=== PATIENT | female | born 1965 | race Hispanic/Latino ===

== ENCOUNTER 2017-11-17 10:32 | Outpatient (CLI) | payer OTHER ==
--- NOTE | 2017-11-18 04:59 | XRay Report ---
FINAL REPORT EXAM: XR KNEE 1-2V LT HISTORY: LEFT KNEE FRACTURED COMPARISONS: None. FINDINGS: AP and lateral views left knee Alignment is anatomic, joint spaces are preserved, and subchondral surfaces are smooth. No acute fracture or joint effusion. IMPRESSION: No acute left knee findings.
== END 2017-11-17 10:33 | disposition home or self-care (01) ==
LOC: XRAY 10:32
PROVIDERS: ATTEND Internal Medicine
DX: M25.562 Pain in left knee (principal); M25.831 Other specified joint disorders, right wrist; M25.832 Other specified joint disorders, left wrist; M06.842 Other specified rheumatoid arthritis, left hand; M06.841 Other specified rheumatoid arthritis, right hand; G56.03 Carpal tunnel syndrome, bilateral upper limbs; M19.90 Unspecified osteoarthritis, unspecified site; I11.0 Hypertensive heart disease with heart failure; I50.9 Heart failure, unspecified; K21.9 Gastro-esophageal reflux disease without esophagitis; I25.10 Atherosclerotic heart disease of native coronary artery without angina pectoris; I48.91 Unspecified atrial fibrillation; J45.909 Unspecified asthma, uncomplicated; D64.9 Anemia, unspecified; F17.200 Nicotine dependence, unspecified, uncomplicated

== ENCOUNTER 2017-12-19 17:10 | Emergency (ER) | payer SELFPAY ==
[2017-12-19 17:14] VITALS: BP 152/101
== END 2017-12-19 21:31 | disposition left against medical advice (07) ==
LOC: ED 17:10
DX: I10 Essential (primary) hypertension (principal); Z53.21 Procedure and treatment not carried out due to patient leaving prior to being seen by health care provider

== ENCOUNTER 2018-03-06 09:43 | Emergency (ER) | payer OTHER, MEDICAID ==
[2018-03-06 09:54] VITALS: BP 189/99
[2018-03-06] MEDS ORDERED: TORADOL IM ONE (12:16)
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
== END 2018-03-06 15:27 | disposition home or self-care (01) ==
LOC: ED 09:43
DX: S29.019A Strain of muscle and tendon of unspecified wall of thorax, initial encounter (principal); S39.012A Strain of muscle, fascia and tendon of lower back, initial encounter; V49.40XA Driver injured in collision with unspecified motor vehicles in traffic accident, initial encounter; F17.200 Nicotine dependence, unspecified, uncomplicated; F12.10 Cannabis abuse, uncomplicated; I25.2 Old myocardial infarction; F41.9 Anxiety disorder, unspecified; Z90.49 Acquired absence of other specified parts of digestive tract; M50.33 Other cervical disc degeneration, cervicothoracic region; Y93.89 Activity, other specified; Y92.89 Other specified places as the place of occurrence of the external cause; Y99.8 Other external cause status
CPT/HCPCS: 72040; 72070; 72100; 96372; 99283; J1885

== ENCOUNTER 2018-07-05 17:33 | Emergency (ER) | payer OTHER ==
[2018-07-05 18:45] LABS: Basophils # (Auto) 0.1 K/mm3 (0.0-0.1); Basophils % (Auto) 0.6 % (0.0-1.8); Eosinophils # (Auto) 0.3 K/mm3 (0.0-0.4); Eosinophils % (Auto) 3.6 % (0.0-4.3); Lymphocytes # (Auto) 2.5 K/mm3 (1.2-5.4); Mean Corpuscular HGB Conc 36 % (30-34); Mean Corpuscular Hemoglobin 35 pg (28-32); Mean Corpuscular Volume 98 fl (79-97); Monocytes # (Auto) 0.9 K/mm3 (0.0-0.8); Monocytes % (Auto) 9.5 % (0.0-7.3); Platelet Count 292 K/mm3 (140-440); Red Blood Count 4.85 M/mm3 (3.65-5.03); Red Cell Distribution Width 13.9 % (13.2-15.2)
[2018-07-05 18:52] LABS: Hematocrit 47.6 % (30.3-42.9)
[2018-07-05 19:13] LABS: Alanine Aminotransferase 18 units/L (7-56); Albumin 4.6 g/dL (3.9-5); BUN/Creatinine Ratio 10; Blood Urea Nitrogen 8 mg/dL (7-17); Calcium 9.8 mg/dL (8.4-10.2); Hemolysis Index 5
[2018-07-05 20:28] LABS: Bilirubin,Urine NEG (Negative); Blood,Urine NEG (Negative); Color,Urine Yellow (Yellow); Mucus,Urine FEW /HPF; Protein,Urine <15 mg/dL mg/dL (Negative); Urobilinogen,Urine < 2.0 mg/dL (<2.0)
--- NOTE | 2018-07-06 07:11 | Emergency Department Report ---
ED General Adult HPI - General Chief complaint: Chest Pain Stated complaint: CHEST/STOMACH PAIN Time Seen by Provider: 07/06/18 07:10 Source: patient Mode of arrival: Wheelchair Limitations: No Limitations - History of Present Illness Initial comments: This is a 52-year-old female with several previous workups at this facility for acute coronary syndrome which were negative. This time the patient states that she has been having pain in the epigastric area. The pain is not pleuritic. It occurs more often after eating. It is been present since 12:30 last night. The patient has been taking ibuprofen at the instruction of her primary care physician. She is status post cholecystectomy some years ago. She she does not complain of any dyspnea sweating dizziness syncope or any sort of pleuritic pain. Describes the pain as dull and nonradiating. She states that she occasionally has chest pain which is above this epigastric region along with the upper abdominal pain occasionally has nausea vomiting and minimally painful micturition. She states that she has appointment with her primary care physician tomorrow. -: Gradual, hour(s) Location: abdomen Radiation: non-radiation Quality: aching Consistency: intermittent Improves with: none Worsens with: eating Associated Symptoms: denies other symptoms Treatments Prior to Arrival: none - Related Data Previous Rx's Medication Instructions Recorded Last Taken Type Acetaminophen/Codeine [Tylenol 1 tab PO BID PRN #10 tab 07/25/16 Unknown Rx /Codeine # 3 tab] amLODIPine [Norvasc] 5 mg PO DAILY #30 tab 07/25/16 Unknown Rx Cyclobenzaprine [Flexeril] 10 mg PO BID PRN #20 tablet 03/06/18 Unknown Rx Menthol/Camphor [[place] 1 applicatio TP TID PRN #1 tube 03/06/18 Unknown Rx Ointment] Naproxen [EC-Naprosyn] 500 mg PO BID #30 tablet. 03/06/18 Unknown Rx Lansoprazole [Prevacid] 15 mg PO BID #30 cap 07/06/18 Unknown Rx Nitrofurantoin Monohyd/M-Cryst 100 mg PO BID #10 capsule 07/06/18 Unknown Rx [Macrobid 100 mg Capsule] traMADol [Ultram] 50 mg PO Q6HR PRN #10 tablet 07/06/18 Unknown Rx Allergies Allergy/AdvReac Type Severity Reaction Status Date / Time No Known Allergies Allergy Verified 12/19/17 17:12 ED Review of Systems ROS: Stated complaint: CHEST/STOMACH PAIN Other details as noted in HPI Constitutional: denies: chills, fever Eyes: denies: eye pain, eye discharge, vision change ENT: denies: ear pain, throat pain Respiratory: denies: cough, shortness of breath, wheezing Cardiovascular: denies: chest pain (complaint is abdominal pain and not chest pain), palpitations Endocrine: no symptoms reported Gastrointestinal: abdominal pain, nausea. denies: vomiting (no signs of GI bleeding), diarrhea, melena, hematochezia Genitourinary: denies: urgency, dysuria, discharge Musculoskeletal: denies: back pain, joint swelling, arthralgia Skin: denies: rash, lesions Neurological: denies: headache, weakness, paresthesias Psychiatric: denies: anxiety, depression Hematological/Lymphatic: denies: easy bleeding, easy bruising ED Past Medical Hx - Past Medical History Previous Medical History?: Yes Hx Hypertension: Yes Hx Heart Attack/AMI: Yes (2009) Hx Congestive Heart Failure: No Hx Diabetes: No Hx Kidney Stones: Yes Hx Psychiatric Treatment: Yes (anxiety) Hx Asthma: (bronchitis) Hx COPD: No Hx Dementia: No Additional medical history: CARDIOMEGALY. irregular heart beat - Surgical History Past Surgical History?: Yes Hx Cholecystectomy: Yes Additional Surgical History: PARTIAL HYSTERECTOMY. TONSILLECTOMY. - Social History Smoking Status: Current Every Day Smoker Substance Use Type: Alcohol, Marijuana - Medications Home Medications: Home Medications Medication Instructions Recorded Confirmed Last Taken Type Acetaminophen/Codeine [Tylenol 1 tab PO BID PRN #10 tab 07/25/16 Unknown Rx /Codeine # 3 tab] amLODIPine [Norvasc] 5 mg PO DAILY #30 tab 07/25/16 Unknown Rx Cyclobenzaprine [Flexeril] 10 mg PO BID PRN #20 tablet 03/06/18 Unknown Rx Menthol/Camphor [[place] 1 applicatio TP TID PRN #1 tube 03/06/18 Unknown Rx Ointment] Naproxen [EC-Naprosyn] 500 mg PO BID #30 tablet. 03/06/18 Unknown Rx Lansoprazole [Prevacid] 15 mg PO BID #30 cap 07/06/18 Unknown Rx Nitrofurantoin Monohyd/M-Cryst 100 mg PO BID #10 capsule 07/06/18 Unknown Rx [Macrobid 100 mg Capsule] traMADol [Ultram] 50 mg PO Q6HR PRN #10 tablet 07/06/18 Unknown Rx ED Physical Exam - General Limitations: No Limitations General appearance: alert, in no apparent distress - Head Head exam: Present: atraumatic, normocephalic - Eye Eye exam: Present: normal appearance, PERRL, EOMI. Absent: scleral icterus - ENT ENT exam: Present: mucous membranes moist - Neck Neck exam: Present: normal inspection. Absent: tenderness, meningismus - Respiratory Respiratory exam: Present: normal lung sounds bilaterally. Absent: respiratory distress - Cardiovascular Cardiovascular Exam: Present: regular rate, normal rhythm. Absent: systolic murmur, diastolic murmur, rubs, gallop - GI/Abdominal GI/Abdominal exam: Present: soft, tenderness (epigastric region tenderness without guarding or reproduces the patient's symptoms), normal bowel sounds. Absent: distended, guarding, rebound, rigid - Extremities Exam Extremities exam: Present: normal inspection - Back Exam Back exam: Present: normal inspection - Neurological Exam Neurological exam: Present: alert, oriented X3. Absent: CN II-XII intact, motor sensory deficit - Psychiatric Psychiatric exam: Present: normal affect, normal mood - Skin Skin exam: Present: warm, dry, intact, normal color. Absent: rash ED Course Vital Signs 07/05/18 07/06/18 07/06/18 18:03 01:48 06:51 Temperature 98.4 F 98.3 F Pulse Rate 82 76 78 Respiratory 18 18 20 Rate Blood Pressure 139/90 126/79 Blood Pressure [Right] O2 Sat by Pulse 98 100 99 Oximetry 07/06/18 07/06/18 07/06/18 06:56 07:00 07:30 Temperature Pulse Rate 78 65 60 Respiratory 18 10 L 9 L Rate Blood Pressure 152/81 147/89 Blood Pressure 152/81 [Right] O2 Sat by Pulse 99 98 Oximetry 07/06/18 07/06/18 07/06/18 08:00 08:31 09:01 Temperature 98.3 F Pulse Rate 74 68 73 Respiratory 17 11 L 10 L Rate Blood Pressure 165/98 Blood Pressure [Right] O2 Sat by Pulse 100 100 98 Oximetry 07/06/18 07/06/18 07/06/18 10:01 11:01 12:01 Temperature Pulse Rate 64 Respiratory 10 L Rate Blood Pressure 165/98 Blood Pressure [Right] O2 Sat by Pulse 98 100 98 Oximetry - Reevaluation(s) Reevaluation #1: 07/06/18 08:34 The patient would appear to have gastritis. She has several risk factors, smoking, alcohol consumption, ibuprofen. Her abdomen is mildly tender. I think it is reasonable to treat her with Prevacid stop her ibuprofen and refer her to GI. 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 I do not find that risk stratification again in the hospital after 2 negative stress tests would be warranted at this time on a clinical basis after normal serial EKGs and troponins. We will wait for her CT result. If it is negative and she is clinically doing well she will be deemed stable for discharge. 07/06/18 08:36 ED Medical Decision Making - Lab Data Result diagrams: 07/05/18 18:21 07/05/18 18:21 Laboratory Results - last 24 hr 07/05/18 07/05/18 07/05/18 18:21 18:21 20:04 WBC 9.5 RBC 4.85 Hgb 17.0 H Hct 47.6 H MCV 98 H MCH 35 H MCHC 36 H RDW 13.9 Plt Count 292 Lymph % (Auto) 26.0 [place] % (Auto) 9.5 H Eos % (Auto) 3.6 Baso % (Auto) 0.6 Lymph # 2.5 [place] # 0.9 H Eos # 0.3 Baso # 0.1 Seg Neutrophils % 60.3 Seg Neutrophils # 5.7 Sodium 139 Potassium 3.8 Chloride 99.0 Carbon Dioxide 26 Anion Gap 18 BUN 8 Creatinine 0.8 Estimated GFR > 60 BUN/Creatinine Ratio 10 Glucose 104 H Calcium 9.8 Total Bilirubin 0.40 AST 18 ALT 18 Alkaline Phosphatase 76 Troponin T < 0.010 Total Protein 7.5 Albumin 4.6 Albumin/Globulin Ratio 1.6 Urine Color Yellow Urine Turbidity Clear Urine pH 5.0 Ur Specific [place] 1.018 Urine Protein <15 mg/dl Urine Glucose (UA) Neg Urine Ketones Neg Urine Blood Neg Urine Nitrite Neg Urine Bilirubin Neg Urine Urobilinogen < 2.0 Ur Leukocyte Esterase Neg Urine WBC (Auto) 6.0 Urine RBC (Auto) 1.0 U Epithel Cells (Auto) 3.0 Urine Mucus Few 07/05/18 07/06/18 21:07 00:17 WBC RBC Hgb Hct MCV MCH MCHC RDW Plt Count Lymph % (Auto) [place] % (Auto) Eos % (Auto) Baso % (Auto) Lymph # [place] # Eos # Baso # Seg Neutrophils % Seg Neutrophils # Sodium Potassium Chloride Carbon Dioxide Anion Gap BUN Creatinine Estimated GFR BUN/Creatinine Ratio Glucose Calcium Total Bilirubin AST ALT Alkaline Phosphatase Troponin T < 0.010 < 0.010 Total Protein Albumin Albumin/Globulin Ratio Urine Color Urine Turbidity Urine pH Ur Specific [place] Urine Protein Urine Glucose (UA) Urine Ketones Urine Blood Urine Nitrite Urine Bilirubin Urine Urobilinogen Ur Leukocyte Esterase Urine WBC (Auto) Urine RBC (Auto) U Epithel Cells (Auto) Urine Mucus - EKG Data -: EKG Interpreted by Me EKG shows normal: sinus rhythm, axis, intervals, QRS complexes, ST-T waves Rate: normal - EKG Data Interpretation: no acute changes - Radiology Data Radiology results: report reviewed interpreted by me: Sliding hiatal hernia and gastritis Critical care attestation.: If time is entered above; I have spent that time in minutes in the direct care of this critically ill patient, excluding procedure time. ED Disposition Clinical Impression: Insulin dependent diabetes mellitus Syncope Qualifiers: Syncope type: unspecified Qualified Code(s): R55 - Syncope and collapse Adverse effects of medication Qualifiers: Encounter type: initial encounter Qualified Code(s): T50.905A - Adverse effect of unspecified drugs, medicaments and biological substances, initial encounter Disposition: DC-01 TO HOME OR SELFCARE Is pt being admited?: No Does the pt Need Aspirin: No Condition: Stable Instructions: Chest Pain (ED), Gastritis (ED), Urinary Tract Infection in Women (ED), Syncope (ED), Diabetes Mellitus Type 2 in Adults (ED) Additional Instructions: RX Ultram. Lansoprazole. Return any significant chest or abdominal pain. Follow-up with your primary care doctor as you planned tomorrow. I'm also giving her the information about the gastrointestinal specialist group. Prescriptions: Lansoprazole [Prevacid] 15 mg PO BID #30 cap Nitrofurantoin Monohyd/M-Cryst [Macrobid 100 mg Capsule] 100 mg PO BID #10 capsule traMADol [Ultram] 50 mg PO Q6HR PRN #10 tablet PRN Reason: Pain Referrals: PRIMARY CARE, [Primary Care Provider] - 3-5 Days Time of Disposition: 12:44
[2018-07-06] MEDS ORDERED: ZOFRAN IV ONE (07:25)
[2018-07-06] MEDS ORDERED: MORPHINE IV ONE (07:25)
[2018-07-06] MEDS ORDERED: NACL 0.9% 1000 ML 1,000 ML IV ONE (07:25)
[2018-07-06 09:26] VITALS: BP 165/98
--- NOTE | 2018-07-06 12:10 | Cat Scan Report ---
CT scan of the abdomen and pelvis with IV contrast: History: Epigastric pain. Findings: Normal lung bases. No pleural or pericardial effusion. Suspicion of small sliding hiatal hernia and gastritis. Normal liver spleen and pancreas. Patient status post cholecystectomy. Normal adrenals. Subcentimeter cyst right kidney. No calculi. Normal bladder. No free intraperitoneal fluid or air. No evidence of adenopathy. Atherosclerotic calcified abdominal aorta without evidence of aneurysm. Normal appendix. Right ovarian cyst measuring 2.2 cm in diameter. No bowel distention or wall thickening. Impression: Suspicion of small sliding hiatal hernia and gastritis. Subcentimeter cyst right kidney. The
== END 2018-07-06 13:21 | disposition home or self-care (01) ==
LOC: ED 17:33
DX: K29.70 Gastritis, unspecified, without bleeding (principal); R55 Syncope and collapse; T50.905A Adverse effect of unspecified drugs, medicaments and biological substances, initial encounter; E11.9 Type 2 diabetes mellitus without complications; I11.0 Hypertensive heart disease with heart failure; F41.9 Anxiety disorder, unspecified; F17.200 Nicotine dependence, unspecified, uncomplicated; Z87.442 Personal history of urinary calculi; Z90.49 Acquired absence of other specified parts of digestive tract; Z90.711 Acquired absence of uterus with remaining cervical stump; Z90.89 Acquired absence of other organs; Y92.89 Other specified places as the place of occurrence of the external cause
CPT/HCPCS: 36415; 74177; 80053; 81001; 83690; 84484; 85025; 87086; 93005; 93010; 96361; 96374; 96375; 99284; J2270; J2405; J7030; Q9967